=== PATIENT | female | born 1945 | race Caucasian/White ===

== ENCOUNTER 2017-03-17 09:21 | Day surgery (SDC) | payer MEDICARE ==
[2017-03-16 09:12] VITALS: BMI 26.6
[2017-03-17 10:27] LABS: Hemoglobin 13.6 g/dL (12.0-16.0)
[2017-03-17] MEDS ORDERED: Oxymetazoline HCl 0.05% ( 15 ML ) ONE ×2 (10:42→11:27)
[2017-03-17 10:54] LABS: Anion Gap 14 mmol/L (10-20); BUN (Urea Nitrogen) 19 mg/dL (9.8-20.1); Calc. Creatinine Clearance 56 mL/min (70-130); Calcium 9.5 mg/dL (7.8-10.44); Carbon Dioxide 26 mmol/L (23-31); Chloride 108 mmol/L (98-107); Estimated GFR-MDRD 52; Glucose 92 mg/dL (83-110); Potassium 4.1 mmol/L (3.5-5.1); Sodium 144 mmol/L (136-145)
[2017-03-17] MEDS ORDERED: Lidocaine 1% w/Epinephrine 1:200K 30 ML VIAL ONE (11:27)
[2017-03-17] MEDS ORDERED: Bacitracin Zinc Ointment 30 gm TUBE ONE (11:28)
[2017-03-17] MEDS ORDERED: Fentanyl 100 MCG/2 ML VIAL ONE ×2 (11:42→13:15)
[2017-03-17] MEDS ORDERED: Lidocaine 1% PF 5 ML VIAL ONE (13:06)
[2017-03-17] MEDS ORDERED: Dexamethasone 20 MG/5 ML VIAL ONE (13:06)
[2017-03-17] MEDS ORDERED: Propofol 200 MG/20 ML VIAL ONE (13:06)
[2017-03-17] MEDS ORDERED: Succinylcholine Chloride 20 MG/ML 10 ml SYRINGE FS ONE (13:06)
[2017-03-17] MEDS ORDERED: Ondansetron HCl/PF 4 MG/2 ML Vial ONE (13:06)
--- NOTE | 2017-03-18 12:40 | OP ---
PREOPERATIVE DIAGNOSES: 1. Nasal septal deviation. 2. Bilateral inferior turbinate hypertrophy. 3. Obstructive sleep apnea. POSTOPERATIVE DIAGNOSES: 1. Nasal septal deviation. 2. Bilateral inferior turbinate hypertrophy. 3. Obstructive sleep apnea. PROCEDURES: 1. Nasal septoplasty. 2. Bilateral inferior turbinate submucosal resection. SURGEON: Dr. Stepan Pierre. ESTIMATED BLOOD LOSS: 10 mL. COMPLICATIONS: None. ANESTHESIA: GETA. PROCEDURE IN DETAIL: Patient was taken to the operating room and placed supine on the table. General endotracheal anesthesia was obtained by the Anesthesia staff. Tube was secured in the left lower lip . Patient was then placed in the beach chair position, and Afrin pledgets were placed in the nasal ca vity. Injections of 1% lidocaine with 1:100,000 epinephrine were made into the nasal septum as well as the inferior turbinates. Patient was then prepped and draped in standard surgical fashion for nasa l surgery. Following this, the Afrin pledgets were removed. A [place] incision was made on the left n ricky septum. Submucoperichondrial dissection was performed. The deviated portions of the septum incl uded portions of the cartilage and the bony septum. These isolated areas were removed using three cut ting rongeurs. There was noted to be a large dorsal and caudal strut, left intact for support of the nose. The mucoperichondrial flaps were then reapproximated using a 4-0 gut stitch. Any straight piece s of cartilage were crushed prior to this and placed between the mucoperichondrial flaps. Following t his, the inferior turbinates were then punctured with a submucosal coblation wand, and submucosal cob lations were performed of multiple areas of the inferior portion of the anterior inferior turbinate. Please note that the submucosal microdebrider was used to submucosally resect the anterior and infer ior portions of the inferior turbinates bilaterally. Following this, the nasal cavity was irrigated. Berrios splints were placed and secured. The patient tolerated the procedure well.
== END 2017-03-17 15:04 | disposition home or self-care (01) ==
LOC: SDC 09:21
PROVIDERS: ATTEND Otolaryngology Plastic Surgery within the Head & Neck
PROC: 09RM07Z Replacement of Nasal Septum with Autologous Tissue Substitute, Open Approach (ICD-10-PCS; principal; 2017-03-17)
PROC: 09TL7ZZ Resection of Nasal Turbinate, Via Natural or Artificial Opening (ICD-10-PCS; 2017-03-17)
DX: J34.2 Deviated nasal septum (principal); J34.3 Hypertrophy of nasal turbinates; G47.33 Obstructive sleep apnea (adult) (pediatric); H91.90 Unspecified hearing loss, unspecified ear; E03.9 Hypothyroidism, unspecified; Z79.899 Other long term (current) drug therapy; Z88.5 Allergy status to narcotic agent; Z98.41 Cataract extraction status, right eye; Z98.42 Cataract extraction status, left eye; Z96.1 Presence of intraocular lens; Z90.711 Acquired absence of uterus with remaining cervical stump; Z98.890 Other specified postprocedural states
CPT/HCPCS: 36415; 80048; 85014; 85018; 88304; 88311; 93005; 93010; J1100; J2001; J2405; J2704; J3010